=== PATIENT | female | born 1950 | race Caucasian/White ===

== ENCOUNTER 2017-06-16 11:14 | Outpatient (CLI) | payer OTHER | END 2017-06-16 11:15 | disposition home or self-care (01) | LOC: BICMAMMO 11:14 | PROVIDERS: ATTEND Obstetrics & Gynecology | DX: Z12.31 Encounter for screening mammogram for malignant neoplasm of breast (principal) | CPT/HCPCS: 77063; 77067 ==

== ENCOUNTER 2021-01-25 08:22 | Emergency (ER) | payer MEDICARE ==
[2021-01-25 09:25] LABS: Hemoglobin 11.8 g/dL (12.0-16.0); Mean Corpuscular HGB CONC 34.5 g/dL (32.0-36.0); Mean Corpuscular Hemoglobin 34.1 pg (27.0-31.0); Mean Corpuscular Volume 98.9 fL (78.0-98.0); Mean Platelet Volume 8.1 fL (7.4-10.4); Platelet Count 132 thou/uL (130-400); RBC Distribution Width 11.5 % (11.5-14.5); Red Blood Cell (RBC) Count 3.47 mill/uL (4.20-5.40); White Blood Cell (WBC) Count 14.3 thou/uL (4.8-10.8)
[2021-01-25 09:42] LABS: ALT (SGPT) 229 U/L (8-55); AST (SGOT) 92 U/L (5-34); Albumin 3.9 g/dL (3.4-4.8); Alkaline Phosphatase 360 U/L (40-110); Bilirubin, Direct 6.5 mg/dL (0.1-0.3); Bilirubin, Total 7.8 mg/dL (0.2-1.2); Protein, Total 6.5 g/dL (5.8-8.1)
[2021-01-25 09:43] LABS: Anion Gap 16 mmol/L (10-20); BUN (Urea Nitrogen) 11 mg/dL (9.8-20.1); Calc. Creatinine Clearance 0 mL/min (70-130); Calcium 9.6 mg/dL (7.8-10.44); Carbon Dioxide 24 mmol/L (23-31); Chloride 94 mmol/L (98-107); Glucose 136 mg/dL (80-115); Lipase 59 U/L (8-78); Potassium 3.8 mmol/L (3.5-5.1); Sodium 130 mmol/L (136-145)
[2021-01-25 10:13] LABS: Band 14 % (5-11); Lymphocytes 6 % (21-51); MDiff Complete? YES; Monocytes 9 % (0-10); Neutrophil 71 % (42-75); Platelet Morphology Comment Appears Adequate; Vacuoles SLIGHT
[2021-01-25 10:37] LABS: Bacteria/HPF None Seen HPF (None Seen); Bilirubin 2+ (Negative); Blood, Urine 2+ (Negative); Clarity Turbid (Clear); Glucose, Urine (Dipstick) Normal (Negative); Ketone, Urine 10 mg/dL (Negative); Leukocyte Negative Leu/uL (Negative); Nitrite Negative (Negative); Protein, Urine (Dipstick) 70 mg/dL (Neg-Trace); RBC/HPF 0-3 HPF (0-3); Specific Gravity, Urine 1.009 (1.002-1.036); Squamous Epithelial 0-3 HPF (0-3); Urobilinogen Normal mg/dL (Less than 2); WBC/HPF 0-3 HPF (0-3)
== END 2021-01-25 15:20 | disposition home or self-care (01) ==
LOC: ERS 08:22
DX: K83.1 Obstruction of bile duct (principal); K86.89 Other specified diseases of pancreas
CPT/HCPCS: 36415; 74177; 76700; 80048; 80076; 81003; 81015; 83690; 85025

== ENCOUNTER 2021-01-25 17:05 | Emergency (ER) | payer MEDICARE ==
[2021-01-25 17:54] LABS: Hemoglobin 11.6 g/dL (12.0-16.0); Mean Corpuscular HGB CONC 34.1 g/dL (32.0-36.0); Mean Corpuscular Hemoglobin 33.6 pg (27.0-31.0); Mean Corpuscular Volume 98.7 fL (78.0-98.0); Mean Platelet Volume 8.6 fL (7.4-10.4); Platelet Count 118 thou/uL (130-400); RBC Distribution Width 11.6 % (11.5-14.5); Red Blood Cell (RBC) Count 3.45 mill/uL (4.20-5.40); White Blood Cell (WBC) Count 14.3 thou/uL (4.8-10.8)
[2021-01-25 18:13] LABS: Band 32 % (5-11); Lymphocytes 2 % (21-51); MDiff Complete? YES; Macrocytosis SLIGHT = 6-15 cells (100X) (0-5/hpf); Monocytes 4 % (0-10); Neutrophil 60 % (42-75); Platelet Morphology Comment Appears Decreased; Polychromasia SLIGHT = 2-3 cells (100X) (0-2/hpf); Reactive Lymphocytes 1 % (0-10); Target Cells SLIGHT = 2-5 cells (100X) (0-1/hpf)
[2021-01-25 18:18] LABS: ALT (SGPT) 206 U/L (8-55); AST (SGOT) 102 U/L (5-34); Albumin 3.8 g/dL (3.4-4.8); Alkaline Phosphatase 364 U/L (40-110); Anion Gap 18 mmol/L (10-20); BUN (Urea Nitrogen) 13 mg/dL (9.8-20.1); Bilirubin, Total 8.5 mg/dL (0.2-1.2); Calc. Creatinine Clearance 0 mL/min (70-130); Calcium 9.8 mg/dL (7.8-10.44); Carbon Dioxide 19 mmol/L (23-31); Chloride 94 mmol/L (98-107); Globulin 3.4 g/dL (2.4-3.5); Glucose 131 mg/dL (80-115); Potassium 3.4 mmol/L (3.5-5.1); Protein, Total 7.2 g/dL (5.8-8.1); Sodium 128 mmol/L (136-145)
[2021-01-25] MEDS ORDERED: Piperacillin/Tazobactam 3.375 GM VIAL ONE (18:30)
== END 2021-01-25 18:59 | disposition short-term general hospital (02) ==
LOC: ERS 17:05
DX: K83.09 Other cholangitis (principal); K83.1 Obstruction of bile duct; K86.89 Other specified diseases of pancreas
CPT/HCPCS: 36415; 74177; 76700; 80048; 80076; 81003; 81015; 83605; 83690; 85025; 87040; 87077; 87149; 87186; 96365; J2543

== ENCOUNTER 2021-02-07 16:06 | Outpatient (CLI) | payer MEDICARE ==
[2021-02-07 16:52] LABS: #Basophils 0.1 10x3/uL (0.0-0.2); #Eosinphils 0.1 10x3/uL (0.0-0.5); #Monocytes 0.6 10x3/uL (0.0-1.1); #Neutrophils 5.8 10x3/uL (1.5-8.4); %Basophils 1.1 % (0.0-2.0); %Eosinophils 1.4 % (0.0-6.0); %Lymphocytes 21.3 % (18.0-47.0); %Monocytes 6.9 % (0.0-10.0); %Neutrophils 68.9 % (40.0-75.0); Hemoglobin 9.2 g/dL (12.0-15.5); Mean Corpuscular HGB CONC 31.9 g/dL (32.0-36.0); Mean Corpuscular Hemoglobin 31.4 pg (27.0-33.0); Mean Corpuscular Volume 98.3 fl (81.6-98.3); Mean Platelet Volume 9.3 fl (7.4-10.4); Platelet Count 615 10x3/uL (150-450); RBC Distribution Width 14.6 % (11.5-14.5); Red Blood Cell (RBC) Count 2.93 10x6/uL (3.90-5.03); White Blood Cell (WBC) Count 8.4 10x3/uL (3.5-10.5)
[2021-02-07 17:10] LABS: Anion Gap 13 mmol/L (10-20); BUN (Urea Nitrogen) 12 mg/dL (9.8-20.1); Calc. Creatinine Clearance 0 mL/min (70-130); Calcium 8.9 mg/dL (7.8-10.44); Carbon Dioxide 28 mmol/L (23-31); Glucose 111 mg/dL (80-115)
[2021-02-07 17:19] LABS: Chloride 106 mmol/L (98-107); Potassium 4.9 mmol/L (3.5-5.1); Sodium 142 mmol/L (136-145)
[2021-02-08 12:16] LABS: SARS-CoV-2 PCR by NAA Not Detected (NotDetected)
== END 2021-02-07 16:07 | disposition home or self-care (01) ==
LOC: LABBT 16:06
PROVIDERS: ATTEND Surgery
DX: Z01.818 Encounter for other preprocedural examination (principal); Z20.822 Contact with and (suspected) exposure to COVID-19
CPT/HCPCS: 80048; 85025; 93005; U0003; U0005; 93010

== ENCOUNTER 2021-02-09 05:58 | Day surgery (SDC) | payer MEDICARE ==
[2021-02-08 11:15] VITALS: BMI 21.4
[2021-02-09] MEDS ORDERED: Fentanyl 100 MCG/2 ML VIAL ONE (06:08)
[2021-02-09] MEDS ORDERED: Propofol 500 MG/50 ML VIAL ONE (06:08)
[2021-02-09] MEDS ORDERED: Acetaminophen 500 MG TAB ONE ×2 (06:20→06:21)
[2021-02-09] MEDS ORDERED: Ketorolac Tromethamine 30 MG/ML VIAL ONE (06:20)
[2021-02-09] MEDS ORDERED: ceFAZolin 2 GM/DEX 5% 100 ML BAG ONE (06:20)
[2021-02-09] MEDS ORDERED: Lidocaine 2% Jelly 5 ML TUBE ONE (06:25)
[2021-02-09] MEDS ORDERED: Bupivacaine 0.25% 10 ML VIAL ONE (07:44)
[2021-02-09] MEDS ORDERED: Lidocaine 1% w/Epinephrine 1:100K 20 ML VIAL ONE (07:44)
[2021-02-09] MEDS ORDERED: PROPOFOL 200 MG/20 ML VIAL ONE (08:06)
== END 2021-02-09 10:20 | disposition home or self-care (01) ==
LOC: SDC 05:58
PROVIDERS: ATTEND Surgery
PROC: 0JH60WZ Insertion of Totally Implantable Vascular Access Device into Chest Subcutaneous Tissue and Fascia, Open Approach (ICD-10-PCS; principal; 2021-02-09)
PROC: 02HV33Z Insertion of Infusion Device into Superior Vena Cava, Percutaneous Approach (ICD-10-PCS; 2021-02-09)
DX: C25.9 Malignant neoplasm of pancreas, unspecified (principal); C77.2 Secondary and unspecified malignant neoplasm of intra-abdominal lymph nodes
CPT/HCPCS: 36561; 71045; C1788; J1642; J1885; J2704; J3010; S0020

== ENCOUNTER 2021-04-06 15:30 | Emergency (ER) | payer MEDICARE ==
[2021-04-06 16:38] LABS: Hemoglobin 5.8 g/dL (12.0-16.0); Mean Corpuscular HGB CONC 35.2 g/dL (32.0-36.0); Mean Corpuscular Hemoglobin 35.6 pg (27.0-31.0); Mean Platelet Volume 10.8 fL (7.4-10.4); Platelet Count 15 thou/uL (130-400); RBC Distribution Width 18.6 % (11.5-14.5); Red Blood Cell (RBC) Count 1.63 mill/uL (4.20-5.40)
[2021-04-06 16:54] LABS: Anisocytosis SLIGHT = 6-15 cells (100X) (0-5/hpf); Band 27 % (5-11); Lymphocytes 13 % (21-51); MDiff Complete? YES; Macrocytosis SLIGHT = 6-15 cells (100X) (0-5/hpf); Metamyelocyte 4 % (0-0); Monocytes 4 % (0-10); Myelocyte 3 % (0-0); Neutrophil 49 % (42-75); Nucleated RBC 3 % (0); Platelet Morphology Comment Appears Decreased; Polychromasia MODERATE = 3-4 cells (100X) (0-2/hpf); Spherocytes SLIGHT = 1-5 cells (100X) (None Seen); Tear Drops SLIGHT = 2-5 cells (100X) (0-1/hpf); White Blood Cell (WBC) Count 12.1 thou/uL (4.8-10.8)
[2021-04-06 16:57] LABS: ALT (SGPT) 107 U/L (8-55); AST (SGOT) 73 U/L (5-34); Albumin 3.5 g/dL (3.4-4.8); Alkaline Phosphatase 465 U/L (40-110); Anion Gap 12 mmol/L (10-20); BUN (Urea Nitrogen) 8 mg/dL (9.8-20.1); Bilirubin, Total 0.4 mg/dL (0.2-1.2); Calc. Creatinine Clearance 0 mL/min (70-130); Carbon Dioxide 23 mmol/L (23-31); Chloride 106 mmol/L (98-107); Globulin 2.5 g/dL (2.4-3.5); Glucose 121 mg/dL (80-115); Sodium 138 mmol/L (136-145)
[2021-04-06] MEDS ORDERED: Potassium Chloride 20 MEQ TAB ONE (18:35)
== END 2021-04-06 21:05 | disposition home or self-care (01) ==
LOC: ERS 15:30
DX: D64.9 Anemia, unspecified (principal); D69.6 Thrombocytopenia, unspecified; C25.0 Malignant neoplasm of head of pancreas; F41.1 Generalized anxiety disorder
CPT/HCPCS: 36430; 80053; 85025; 86850; 86900; 86901; 86920; 96374; 99284; P9016; P9035; 36415; 82248; 83615; 84100; 84550; J1642

== ENCOUNTER 2022-02-01 09:40 | Outpatient (CLI) | payer MEDICARE ==
[2022-02-01] MEDS ORDERED: Iopamidol-370 76% 500 ML 1 ML ONE (10:19)
== END 2022-02-01 09:41 | disposition home or self-care (01) ==
LOC: BICCT 09:40
PROVIDERS: ATTEND Internal Medicine Hematology & Oncology
DX: C25.0 Malignant neoplasm of head of pancreas (principal); R18.8 Other ascites; K63.9 Disease of intestine, unspecified; I77.6 Arteritis, unspecified; Z90.49 Acquired absence of other specified parts of digestive tract; Z79.899 Other long term (current) drug therapy; Z98.890 Other specified postprocedural states
CPT/HCPCS: 36415; 74177; 86301

== ENCOUNTER 2023-02-03 08:38 | Outpatient (CLI) | payer MEDICARE ==
[2023-02-03] MEDS ORDERED: Iopamidol 370 76% 100 ML VIAL ONE (09:26)
== END 2023-02-03 08:39 | disposition home or self-care (01) ==
LOC: BICCT 08:38
PROVIDERS: ATTEND Internal Medicine Hematology & Oncology
DX: C25.0 Malignant neoplasm of head of pancreas (principal); R91.1 Solitary pulmonary nodule; K76.0 Fatty (change of) liver, not elsewhere classified; R93.5 Abnormal findings on diagnostic imaging of other abdominal regions, including retroperitoneum; Z98.890 Other specified postprocedural states
CPT/HCPCS: 74177; 82565; Q9967

== ENCOUNTER 2023-03-06 08:45 | Outpatient (CLI) | payer MEDICARE | END 2023-03-06 08:46 | disposition home or self-care (01) | LOC: PET 08:45 | PROVIDERS: ATTEND Internal Medicine Hematology & Oncology | DX: C25.0 Malignant neoplasm of head of pancreas (principal); R97.8 Other abnormal tumor markers | CPT/HCPCS: 78815; A9552 ==

== ENCOUNTER 2023-09-02 11:00 | Outpatient (CLI) | payer MEDICARE | END 2023-09-02 11:01 | disposition home or self-care (01) | LOC: PET 11:00 | PROVIDERS: ATTEND Internal Medicine Hematology & Oncology | DX: C25.0 Malignant neoplasm of head of pancreas (principal); R91.8 Other nonspecific abnormal finding of lung field | CPT/HCPCS: 78815; A9552 ==

== ENCOUNTER 2023-11-21 11:45 | Outpatient (CLI) | payer MEDICARE | END 2023-11-21 11:46 | disposition home or self-care (01) | LOC: PET 11:45 | PROVIDERS: ATTEND Internal Medicine Hematology & Oncology | DX: C25.0 Malignant neoplasm of head of pancreas (principal); R16.0 Hepatomegaly, not elsewhere classified; R91.8 Other nonspecific abnormal finding of lung field; K66.8 Other specified disorders of peritoneum | CPT/HCPCS: 78815; A9552 ==

== ENCOUNTER 2024-02-03 08:45 | Outpatient (CLI) | payer MEDICARE | END 2024-02-03 08:46 | disposition home or self-care (01) | LOC: PET 08:45 | PROVIDERS: ATTEND Internal Medicine Hematology & Oncology | DX: C25.0 Malignant neoplasm of head of pancreas (principal); M79.89 Other specified soft tissue disorders; R16.0 Hepatomegaly, not elsewhere classified; Z79.899 Other long term (current) drug therapy | CPT/HCPCS: 78815; A9552 ==

== ENCOUNTER 2025-01-12 13:32 | Outpatient (CLI) | payer MEDICARE ==
[~2025-01-12 13:32] MED LIST: Iopamidol 370 76% 100 ML VIAL ONE
== END 2025-01-12 13:33 | disposition home or self-care (01) ==
LOC: CT 13:32
PROVIDERS: ATTEND Internal Medicine Hematology & Oncology
DX: C25.0 Malignant neoplasm of head of pancreas (principal); Z79.899 Other long term (current) drug therapy; K76.9 Liver disease, unspecified
CPT/HCPCS: 71260; 74177; J1642; Q9967

== ENCOUNTER 2025-01-26 08:00 | Outpatient (CLI) | payer MEDICARE | END 2025-01-26 08:01 | disposition home or self-care (01) | LOC: PET 08:00 | PROVIDERS: ATTEND Internal Medicine Hematology & Oncology | DX: C25.0 Malignant neoplasm of head of pancreas (principal); Z79.899 Other long term (current) drug therapy; K76.9 Liver disease, unspecified | CPT/HCPCS: 78815; A9552 ==